=== PATIENT | male | born 1990 | race Two or more races ===

== ENCOUNTER 2024-02-21 04:31 | Emergency (ER) | payer OTHER ==
[~2024-02-21] VITALS: Ht 172.7 cm; Wt 117.9 kg
[2024-02-21] MEDS ORDERED: METFORMIN HCL500 M2 PO (04:39)
[2024-02-21] MEDS ORDERED: KETOROLAC TROMETHAMINE 60 MG VIAL IM STA (05:14)
[2024-02-21] MEDS ORDERED: OxyCODONE HCL/APAP UD (PERCOCET) PO STA (05:15)
[2024-02-21] MEDS ORDERED: DEXAMETHASONE SODIUM PHOSPHATE 4 MG/ML VIAL IM STA (05:15)
== END 2024-02-21 05:40 | disposition home or self-care (01) ==
LOC: ER 04:32
DX: M10.9 Gout, unspecified (principal); E11.9 Type 2 diabetes mellitus without complications; Z79.84 Long term (current) use of oral hypoglycemic drugs